=== PATIENT | male | born 2000 | race Two or more races ===

== ENCOUNTER 2024-10-27 19:36 | Emergency (ER) | payer OTHER ==
[~2024-10-27] VITALS: Ht 175.3 cm; Wt 104.3 kg
[2024-10-27 19:42] VITALS: O2SAT 98
[2024-10-27] MEDS ORDERED: HYDROCODONE/APAP 10-325 MG TABLET ONE (20:12)
[2024-10-27] MEDS ORDERED: ONDANSETRON ODT 4 MG TAB.RAPDIS ONE (20:12)
[2024-10-27] MEDS: HYDROCODONE/APAP 10-325 MG TABLET PO ONE (20:14)
[2024-10-27] MEDS: ONDANSETRON ODT 4 MG TAB.RAPDIS SL ONE (20:15)
[2024-10-27] MEDS ORDERED: ONDA4TAB11 PO (20:28)
[2024-10-27] MEDS ORDERED: HYDR-3980 PO (20:28)
== END 2024-10-27 21:20 | disposition home or self-care (01) ==
LOC: ER 19:41
DX: S50.02XA Contusion of left elbow, initial encounter (principal); F41.9 Anxiety disorder, unspecified; M25.532 Pain in left wrist; M25.552 Pain in left hip; X58.XXXA Exposure to other specified factors, initial encounter; Y93.89 Activity, other specified; Y92.89 Other specified places as the place of occurrence of the external cause; Y99.8 Other external cause status
CPT/HCPCS: 73080; 73110; 73502; A4606; A4663; Q0162